=== PATIENT | female | born 1970 | race Caucasian/White ===

== ENCOUNTER 2021-10-21 13:14 | Inpatient (IN) | payer BC, SELFPAY ==
[2021-10-21] VITALS (7 sets, daily range): BP systolic 134–155; BP diastolic 71–88; PULSE 64–92; RESP 16–22; TEMP 36.6–37.2; O2SAT 98–100; BMI 24.9
--- NOTE | ~2021-10-21 | MR_ITS ---
EXAMINATION: MR brain/brain stem wo con DATE: 10/22/2021 12:17 INDICATION: Transient ischemic attack. TECHNIQUE: Magnetic resonance imaging (MRI) of the brain and brainstem was performed without intraven ous contrast. COMPARISON: Head CT 10/21/2021 FINDINGS: There is no intracranial hemorrhage, acute infarction, or abnormal intracranial mass lesion . The ventricles are normal in size. The paranasal sinuses are clear. The orbits are normal. The mast oid air cells are normal. IMPRESSION: 1. Normal brain. Reviewed, dictated and finalized at location B. IMPRESSION: 1. Normal brain.
--- NOTE | ~2021-10-21 | XR_ITS ---
EXAMINATION: XR cervical spine 4-5V DATE: 10/24/2021 10:07 INDICATION: Right arm weakness and numbness. TECHNIQUE: 4 views of cervical spine were obtained. COMPARISON: None. FINDINGS: Bone alignment is normal. Vertebral body heights are normal. There is mildly decreased disc height at C4-C5 and C5-C6. There is multilevel mild facet joint osteoarthritis. There is mild centra l canal stenosis at C5-C6. No prevertebral soft tissue swelling. IMPRESSION: 1. Mild cervical spondylosis. Reviewed, dictated and finalized at location B.
--- NOTE | ~2021-10-21 | US_ITS ---
EXAMINATION: US carotid duplex BI DATE: 10/22/2021 12:19 INDICATION: Carotid bruit. TECHNIQUE: Grayscale, color Doppler, and pulsed Doppler images of the cervical carotid arteries were obtained. The degree of vessel stenosis is placed in one of the following categories: normal, <50%, 5 0-69%, >=70% but less than near-occlusion, near-occlusion, or total occlusion. Note that percent sten osis relative to normal distal artery lumen diameter is indirectly measured from velocity measurement s as described by Brandon, et al. Radiology 2003; 229:340-346. COMPARISON: None. FINDINGS: RIGHT: The right common carotid artery (CCA) peak systolic velocity (PSV) is 87 cm/s. The right internal car otid artery (ICA) PSV is 97 cm/s. The right ICA end-diastolic velocity (EDV) is 43 cm/s. The right IC A/CCA PSV ratio is 1.1. Grayscale and color Doppler images yield an estimate of <50% diameter reducti on from plaque in the ICA. There is antegrade flow in the right vertebral artery. LEFT: The left CCA PSV is 97 cm/s. The left ICA PSV is 100 cm/s. The left ICA EDV is 45 cm/s. The left ICA/ CCA PSV ratio is 1.0. Grayscale and color Doppler images yield an estimate of <50% diameter reduction from plaque in the ICA. There is antegrade flow in the left vertebral artery. IMPRESSION: 1. <50% stenosis in the right internal carotid artery. 2. <50% stenosis in the left internal carotid artery. Reviewed, dictated and finalized at location B.
--- NOTE | ~2021-10-21 | CT_ITS ---
EXAMINATION: CT brain wo con DATE: 10/21/2021 14:11 INDICATION: numbness right arm . TECHNIQUE: Computed tomography (CT) of the head was performed without intravenous contrast. The mA wa s adjusted according to patient size. Iterative reconstruction technique was employed. The dose-lengt h product was 681.00 mGy-cm. COMPARISON: None FINDINGS: No acute intracranial hemorrhage or extra-axial fluid collection. No hydrocephalus, mass, or herniation. No acute ischemic infarct. Unremarkable dural venous sinus attenuation. No acute osseous abnormality. The aerated spaces are clear. IMPRESSION: No acute intracranial process. Reviewed, dictated and finalized at location K.
--- NOTE | 2021-10-21 13:30 | ECG_ITS ---
Measurements Intervals [place] Rate: 84 P: 63 [place]: 120 QRS: 35 QRSD: 81 T: 9 QT: 385 QTc: 456 Interpretive Statements SINUS RHYTHM NONSPECIFIC T-WAVE ABNORMALITY NO PREVIOUS ECG AVAILABLE FOR COMPARISON Electronically Signed On 10-21-2021 16:32:33 CDT by Haim Sommer M.D.
--- NOTE | 2021-10-21 13:34 | ED.NEUROSD ---
HPI - Neuro Symptoms/Deficit General Chief Complaint: Neuro Symptoms/Deficit Stated Complaint: numbness/wkns of right arm Time Seen by Provider: 10/21/21 13:16 History of Present Illness HPI Narrative: Pt was driving to work and flet numbness of right side of face and right hand and her right hand clawed up and she felt her heart race and felt like she was having an out of body experience. Pt says the numbness in her face has nearly resolved and the hand is improving but still feels like she can't control it. Pt denies any issues of RLE. Pt stung by yellow jacket in left ear 3 days ago and had decadron shot 2 days ago for swelling and taking benadryl but all that is improved. Related Data Home Medications Medication Instructions Recorded Confirmed No Home Medications 10/21/21 10/21/21 Allergies Allergy/AdvReac Type Severity Reaction Status Date / Time No Known Allergies Allergy Verified 10/21/21 13:36 Review of Systems Review of Systems: All systems reviewed & are unremarkable except as noted in HPI and below Eyes: Eyes: Reports no additional eye complaints Cardiovascular: Cardiovascular: Reports rapid heart rate Respiratory: Respiratory: Reports dyspnea Musculoskeletal: Musculoskeletal: Reports as per HPI Neurologic: Reports as per HPI Psychiatric: Psychiatric: Reports anxiety PMFSH Past Medical History Medical History (Updated 10/21/21 @ 21:16 by Jordan Sheldon III, DO) No pertinent past medical history Surgical History Surgical History (Updated 10/21/21 @ 19:59 by Liliana Butler APRN) No pertinent past surgical history Social History Social History Spiritual care concerns: No Exam Const: General: healthy appearing Nutritional Appearance: well nourished Orientation/consciousness: patient oriented x3 Limitations: no limitations HENMT: Head: normal to inspection Eyes: Conjunctivae: conjunctivae normal EOM: EOMs intact bilaterally Direct Ophthalmoscopy: no photophobia Neck: Neck: normal visual inspection, no lymphadenopathy and no meningeal signs Chest: Chest palpation & inspection: normal inspection of the chest Resp: Effort & Inspection: normal respiratory effort Auscultation: clear to auscultation bilaterally Cardio: Rate: tachycardic Rhythm: regular rhythm GI: GI Palp: Yes Soft to palpation Auscultation: normal bowel sounds Skin: General skin exam: normal color Rashes: no rashes Wounds: no wounds Neuro: General: patient oriented x3 and CN's II-XI intact bilaterally Cranial nerves: Yes Nystagmus not present Speech: normal speech Other: right wrist flexed somewhat, strength with assembler piano 4/5 on right and 5/5 on left. LE strength 5/5 b/l Extrem: General: no clubbing, cyanosis or edema Psych: Affect: Anxious affect present Attitude: cooperative Course Vital Signs Vital signs: Vital Signs Temperature 98.0 F 10/21/21 13:26 Pulse Rate 92 10/21/21 13:26 Respiratory Rate 22 H 10/21/21 13:26 Blood Pressure 143/84 H 10/21/21 13:26 Pulse Oximetry 98 10/21/21 13:26 Oxygen Delivery Room Air 10/21/21 13:26 Temperature 97.9 F 10/21/21 19:35 Pulse Rate 77 10/21/21 19:35 Respiratory Rate 22 H 10/21/21 19:35 Blood Pressure 149/74 H 10/21/21 19:35 Pulse Oximetry 100 10/21/21 19:35 Oxygen Delivery Room Air 10/21/21 13:26 MDM - Neuro Symptoms/Deficit Lab Data Result diagrams: 10/21/21 14:17 10/21/21 14:17 Labs: Lab Results 10/21/21 10/21/21 10/21/21 Range/Units 14:17 14:17 14:17 WBC 11.4 H (4.5-10.0) K/mm3 RBC 4.01 L (4.2-5.4) M/mm3 Hgb 12.6 (12.0-15.0) g/dL Hct 38.5 (37.0-47.0) % MCV 96.0 (80-100) fl MCH 31.4 (26-34) pg MCHC 32.7 (32-36) g/dl RDW 13.6 (11.5-14.5) % Plt Count 290 (150-375) k/mm3 MPV 11.5 H (7.4-10.4) fl Immature Gran % (Auto) 1.1 H (0-0.5) % Neut % (Auto) 72.4 (45.5-73.1) % Lymph % (Auto) 15.
[2021-10-21 14:36] LABS: Alanine Aminotransferase 24 U/L (6-35); Alkaline Phosphatase 55 U/L (38-126); Anion Gap 8 mmol/L (8-16); Aspartate Amino Transferase 20 U/L (14-36); Bilirubin,Total 0.3 mg/dL (0.2-1.3); Blood Urea Nitrogen 16 mg/dL (7-17); Calcium 9.4 mg/dL (8.4-10.2); Carbon Dioxide 24 mmol/L (22-30); Chloride 109 mmol/L (98-107); Estimated CRCL calculation 56 ml/min; Estimated Glomerular Filt Rate > 60; Glucose 121 mg/dL (65-110); Potassium 3.5 mmol/L (3.4-5.0); Prothrombin Time 13.2 Seconds (11.1-14.7); Sodium 141 mmol/L (137-145)
[2021-10-21 14:37] LABS: Basophils Absolute Auto 0.1 K/mm3 (0.0-0.1); Basophils Percent Auto 0.4 % (0.2-1.2); Eosinophils Absolute Auto 0.1 K/mm3 (0-0.3); Eosinophils Percent Auto 0.6 % (0-4.4); Hematocrit 38.5 % (37.0-47.0); Hemoglobin 12.6 g/dL (12.0-15.0); Immature Granulocyte Absolute 0.12 K/mm3 (0.00-0.031); Immature Granulocyte Percent A 1.1 % (0-0.5); Lymphocytes Absolute Auto 1.81 K/mm3 (0.9-3.2); Lymphocytes Percent Auto 15.9 % (18.3-44.2); Mean Corpuscular HGB Conc 32.7 g/dl (32-36); Mean Corpuscular Hemoglobin 31.4 pg (26-34); Mean Platelet Volume 11.5 fl (7.4-10.4); Monocytes Absolute Auto 1.1 K/mm3 (0.1-0.6); Monocytes Percent Auto 9.6 % (2.6-8.5); Neutrophils Absolute Auto 8.3 K/mm3 (1.3-6.7); Neutrophils Percent Auto 72.4 % (45.5-73.1); Partial Thromboplastin Time 24.8 SECONDS (22.3-36.8); Platelet Count Result 290 k/mm3 (150-375); Red Blood Count 4.01 M/mm3 (4.2-5.4); Red Cell Distribution Width 13.6 % (11.5-14.5); White Blood Count 11.4 K/mm3 (4.5-10.0)
[2021-10-21 14:48] LABS: Troponin I < 0.012 ng/mL (0.000-0.034)
--- NOTE | 2021-10-21 18:01 | ADMGEN ---
This patient, Farhana Garcia, was admitted to Medical Room 343-01. Patient/family oriented to hospital policies and general routines including ID bracelet, bed and alarms, visiting hours, pain management, procedures, bathroom and other care routines, personal items, smoking policy, room service/diet, and visiting hours. Information on how to activate the Rapid Response Team has been discussed. Patient/Family are encouraged to report perceived risks to care and to ask questions if they do not understand what they are told or what they should do.
--- NOTE | 2021-10-21 19:37 | PM.IMHP ---
H&P: HPI History of Present Illness Date/Time: Patient was placed observation status for expected length of stay less than 23 hours for management, will plan to re-evaluate tomorrow for improvement. 10/21/21 19:37 Chief Complaint: Numbness and weakness of right upper extremity Narrative: Ms. Garcia is a 50-year-old female who presented to the emergency room with complaints numbness and weakness to right upper extremity. Patient states that she was feeling quite exhausted today when she woke up. Patient states she did not have to be to work till 11 and as she was getting ready for work she had taken Keflex and her Medrol Dosepak which she was prescribed for a bee sting and she was feeling ?not well?. Patient states that she ate something was feeling slightly improved. Patient states she was driving to work and she noticed some numbness and weakness to her right upper extremity. Patient states while driving that she could no longer hold onto the steering wheel and she felt very shaky. Patient states that the only position her right upper extremity felt comfortable in was laying on her chest in a curled position. Patient denied any deficit to her right lower extremity. Patient states that she did have some numbness to her right face. Patient denied any slurred speech. Patient denies any difficulty speaking. Patient states she was able to see without any difficulty. Patient denied any blurred vision, double vision, or vision loss. Patient states that when she arrived to the emergency room that her symptoms began to improve. Patient states she has no past medical history. Patient states she takes no medications at home. Patient states on of last week she was stung by a bee and had swelling to her left earlobe. Patient states she was taking Benadryl and ibuprofen and she continued to have swelling and went to an urgent care. Patient states he was given a shot of dexamethasone and a prescription for Keflex and a Medrol Dosepak. Patient states she has been taking these medications without any difficulty. Patient denies ever having this occurred to her previously. Patient states that occasionally she will take Excedrin at home for headaches. Patient states that while she was driving to work she did take an Excedrin because she never has aspirin in it. Review of Systems Review of Systems: A 12 point review of systems was completed patient all pertinent positive and negative per HPI the remainder are unremarkable. ON LICENSE OF [facility] Past Medical History Medical History (Updated 10/21/21 @ 20:06 by Liliana Butler APRN) No pertinent past medical history Surgical History Surgical History (Updated 10/21/21 @ 19:59 by Liliana Butler APRN) No pertinent past surgical history Social History Social History Spiritual care concerns: No Meds Home Medications and Allergies Home Medications Medication Instructions Recorded Confirmed Type No Home Medications 10/21/21 10/21/21 History Allergies Allergy/AdvReac Type Severity Reaction Status Date / Time No Known Allergies Allergy Verified 10/21/21 13:36 Vital Signs Vital Signs - 24 hr 10/21/21 13:26 10/21/21 13:47 10/21/21 15:38 Temperature 36.7 C Pulse Rate 92 88 86 Respiratory Rate 22 H 21 H 18 Blood Pressure 143/84 H 134/87 155/88 H Pulse Oximetry 98 100 99 Oxygen Delivery Room Air 10/21/21 17:32 10/21/21 17:56 10/21/21 19:35 Temperature 37.2 C 36.6 C Pulse Rate 76 64 77 Respiratory Rate 17 16 22 H Blood Pressure 147/85 H 134/71 149/74 H Pulse Oximetry 99 100 100 Oxygen Delivery Exam Narrative: Constitutional: Patient is well-nourished in no acute distress. Patient is alert and oriented x3 HEENT: Moist mucous membranes. No scleral icterus. No lymphadenopathy. Neck: No JVD noted Lungs: Lung sounds are clear to auscultation bilaterally. No accessory muscle use. No rhonchi, rales, or wheezes noted. Cardiovascular: Apical p
--- NOTE | 2021-10-21 19:47 | PC.NURSE ---
Call to nurse and she states she feels funny c/o numbness on Rt side of face and back of head, T 97.9, spo2 100%, pulse 83, R. 18 and b/p 149/74. Pt is alert and oriented not neuro deficits noted. Pt appears anxious and nervous. Call placed to PA and updated regarding c/o and no new orders received at this time.
--- NOTE | 2021-10-22 | ECHO_ITS ---
Patient Info Name: Farhana Garcia Age: 50 years : 1970 Gender: Female Ht: 61 in Wt: 128 lbs BSA: 1.59 m2 HR: 72 bpm BP: 119 / 76 mmHg Heart Rhythm: Sinus Rhythm Exam Date: 10/22/2021 1:27 PM Exam Location: [facility] Patient Status: Inpatient Admit Date: 10/21/2021 Staff Ordering Physician: Liliana Butler APRN Software Consultant: Fernando San RDCS, RT Attending Provider: Hunter Vallejo MD Referring Physician: Carrie ANDRE; Exam Type: CA echo doppler color flow Study Info Indications G45.8 - Other transient cerebral ischemic attacks and related syndromes Complete two-dimensional, color flow and Doppler transthoracic echocardiogram is performed. Strain analysis performed. Summary 1. Complete two-dimensional, color flow and Doppler transthoracic echocardiogram is performed. 2. Left ventricular chamber dimension is normal. 3. Left ventricular systolic function is normal, estimated at 65-70%. 4. There is mildly increased left ventricular wall thickness. 5. The left ventricular diastolic function is normal. 6. Global longitudinal strain is normal at -18 %. 7. Left atrial chamber dimension is mildly enlarged. 8. There is mild aortic valve regurgitation. 9. Cannot rule out aortic valve vegetation visualized. 10. There is mild tricuspid valve regurgitation. 11. There is aortic valve thickening and aortic valve vegetaton is not excluded. 12. Recommend JOCELYNE. Left Ventricle Left ventricular chamber dimension is normal. Left ventricular systolic function is normal, estimated at 65-70%. There is mildly increased left ventricular wall thickness. The left ventricular diastolic function is normal. Global longitudinal strain is normal at -18 %. Right Ventricle Right ventricular chamber dimension is normal. Right ventricular systolic function is normal. Left Atria Left atrial chamber dimension is mildly enlarged. Right Atria Right atrial chamber dimension is normal. Atrial Septum Intact interatrial septum visualized by color flow imaging. Aortic Valve The aortic valve is trileaflet. There is no aortic valve stenosis. There is mild aortic valve regurgitation. Cannot rule out aortic valve vegetation visualized. There is aortic valve thickening and aortic valve vegetaton is not excluded. Pulmonic Valve The pulmonic valve is normal. There is no pulmonic valve stenosis. There is trace pulmonic regurgitation. Mitral Valve The mitral valve has normal leaflets. There is no mitral valve stenosis. There is trace mitral valve regurgitation. Tricuspid Valve The tricuspid valve leaflets are normal. There is no significant tricuspid valve stenosis. There is mild tricuspid valve regurgitation. Other Findings Recommend JOCELYNE. Pericardium/Pleural The pericardium appears normal. There is no pericardial effusion. Inferior Vena Cava Dilated inferior vena cava with <50% collapse upon inspiration consistent with elevated right atrial pressure, 10 mmHg. Aorta The aortic root size at the sinus of Valsalva is normal. Left Ventricular Outflow Tract Name Value Normal LVOT 2D LVOT Diameter 1.9 cm LVOT Doppler
[2021-10-22] MEDS: ACETAMINOPHEN 325 MG TABLET 650 MG PO ×2 (00:47→19:53)
[2021-10-22 05:02] VITALS: BP 119/76; PULSE 75; RESP 18; TEMP 37.2; O2SAT 99
[2021-10-22 05:54] LABS: Basophils Absolute Auto 0.1 K/mm3 (0.0-0.1); Basophils Percent Auto 0.6 % (0.2-1.2); Eosinophils Absolute Auto 0.3 K/mm3 (0-0.3); Eosinophils Percent Auto 3.2 % (0-4.4); Hematocrit 35.6 % (37.0-47.0); Hemoglobin 11.8 g/dL (12.0-15.0); Immature Granulocyte Absolute 0.02 K/mm3 (0.00-0.031); Immature Granulocyte Percent A 0.2 % (0-0.5); Lymphocytes Absolute Auto 3.63 K/mm3 (0.9-3.2); Lymphocytes Percent Auto 44.3 % (18.3-44.2); Mean Corpuscular HGB Conc 33.1 g/dl (32-36); Mean Corpuscular Hemoglobin 31.9 pg (26-34); Mean Corpuscular Volume 96.2 fl (80-100); Mean Platelet Volume 11.4 fl (7.4-10.4); Monocytes Absolute Auto 0.7 K/mm3 (0.1-0.6); Monocytes Percent Auto 8.2 % (2.6-8.5); Neutrophils Absolute Auto 3.6 K/mm3 (1.3-6.7); Neutrophils Percent Auto 43.5 % (45.5-73.1); Platelet Count Result 261 k/mm3 (150-375); Red Cell Distribution Width 13.6 % (11.5-14.5); White Blood Count 8.2 K/mm3 (4.5-10.0)
[2021-10-22 06:13] LABS: Anion Gap 6 mmol/L (8-16); Blood Urea Nitrogen 10 mg/dL (7-17); Calcium 8.3 mg/dL (8.4-10.2); Carbon Dioxide 27 mmol/L (22-30); Chloride 105 mmol/L (98-107); Cholesterol 167 mg/dL (0-200); Estimated CRCL calculation 63 ml/min; Estimated Glomerular Filt Rate > 60; Glucose 93 mg/dL (65-110); HDL Direct 46 mg/dL; Magnesium 2.1 mg/dL (1.6-2.3); Potassium 3.8 mmol/L (3.4-5.0); Sodium 138 mmol/L (137-145); Triglycerides 112 mg/dL (<150)
[2021-10-22 06:23] LABS: LDL Cholesterol Direct 85 mg/dL
[2021-10-22] MEDS: ASPIRIN 81 MG ENTERIC TABLET PO (08:28)
[2021-10-22] MEDS: ENOXAPARIN 40 MG/0.4 ML SYRINGE SUB-Q (08:28)
[2021-10-22] MEDS: ONDANSETRON INJ 4 MG/2 ML VIAL IV PUSH (08:55)
[2021-10-22] MEDS: ALPRAZolam (*CRX) 0.5 MG TABLET PO (08:55)
[2021-10-22 09:02] LABS: Glucose Point of Care 109 mg/dl (65-105)
--- NOTE | 2021-10-22 12:12 | WPDNEURCNPN ---
Assessment and Plan Assessment and plan (1) Brain TIA: Code(s): G45.9 - Transient cerebral ischemic attack, unspecified Status: Acute Plan TIA, will benefit from from MRI of the brain echocardiogram and all the blood workup studies further recommendation accordingly in the meantime patient is receiving aspirin 81 mg daily and Lovenox 40 mg subcu daily Consult date: 10/22/21 Time Seen: 11:00 Reason for consult: numbness and weakness of right upper extremity HPI: Farhana Garcia is a 50 year old female admitted to the hospital through the emergency room where she was brought with the complaints of numbness and weakness of the right upper extremity and was initially seen by the provider October 21, 2021 at 1:16 p.m. reportedly she was driving to work and felt numbness of right side of face and right hand and then her right hand clot up and she felt her heart was racing and she was having out of body experience in addition she developed numbness in her face subsequently resolved hand improved still by the time she was seen by the physician she was unable to control the movements she gave no history of involvement of the right lower extremity she has been stung by the yellow jacket in left ear is ago for which she had received Decadron shot 2 days ago and also was taking Benadryl the symptomatology had improved she is not on any home medication by history, not allergic to any medication by history and past medical and surgical history is clear initial vital signs were stable on room air so as the routine lab with normal EKG, her initial CT scan was negative for any acute problems date is no hydrocephalus no signs of stroke and no bleed the MRI of the brain and Doppler carotid studies are pending Review of Systems Review of Systems: All systems reviewed & are unremarkable except as noted in HPI and below PMFSH Past Medical History Medical History (Updated 10/21/21 @ 21:16 by Jordan Sheldon III, DO) No pertinent past medical history Surgical History Surgical History (Updated 10/21/21 @ 19:59 by Liliana Butler APRN) No pertinent past surgical history Social History Social History Spiritual care concerns: No Meds Home Medications and Allergies Home Medications Medication Instructions Recorded Confirmed Type No Home Medications 10/21/21 10/21/21 History Allergies Allergy/AdvReac Type Severity Reaction Status Date / Time No Known Allergies Allergy Verified 10/21/21 13:36 Vital Signs Vital Signs - 24 hr 10/21/21 13:26 10/21/21 13:47 10/21/21 15:38 Temperature 36.7 C Pulse Rate 92 88 86 Respiratory Rate 22 H 21 H 18 Blood Pressure 143/84 H 134/87 155/88 H Pulse Oximetry 98 100 99 Oxygen Delivery Room Air 10/21/21 17:32 10/21/21 17:56 10/21/21 19:35 Temperature 37.2 C 36.6 C Pulse Rate 76 64 77 Respiratory Rate 17 16 22 H Blood Pressure 147/85 H 134/71 149/74 H Pulse Oximetry 99 100 100 Oxygen Delivery 10/21/21 20:00 10/21/21 19:40 10/22/21 05:02 Temperature 36.6 C 37.2 C Pulse Rate 83 75 Respiratory Rate 18 18 Blood Pressure 149/74 H 119/76 Pulse Oximetry 100 99 Oxygen Delivery Room Air Room Air 10/22/21 08:00 Temperature Pulse Rate Respiratory Rate Blood Pressure Pulse Oximetry Oxygen Delivery Room Air Exam Narrative: revealed her to be awake alert cooperative, normocephalic with no cranial bruit, ear nose throat examination normal, neck is supple with no cervical bruit, lungs clear with no rhonchi or crepitations, abdomen is soft with no organomegaly, heart regular with with systolic murmur, lungs clear abdomen is soft neurologically normal mental status normal speech cranial examination normal motor examination revealed normal strength and tone reflexes symmetrical and plantars downgoing Results Labs CBC & Chem 7: 10/22/21 05:25 10/22/21 05:25 Labs: Short CBC 10/21/21 10/22/21 Range/Units 14:
[2021-10-22 14:00] VITALS: BP 117/72; PULSE 72; RESP 20; TEMP 36.8; O2SAT 100
--- NOTE | 2021-10-22 16:07 | PM.IMPN ---
Progress Note: A&P Assessment and Plan (1) TIA (transient ischemic attack): Code(s): G45.9 - Transient cerebral ischemic attack, unspecified Status: Acute Assessment and Plan: CT of head is negative. Patient neurologically is intact has no neural deficits at this time. Will have q.4 hours neuro checks. Will have Neurology to evaluate and treat do appreciate further recommendations. Will have MRI, lipid panel, echo Doppler, and carotid Dopplers performed. Will place patient on aspirin 81 mg daily. Patient would rather not be started on a statin till her lipid panel has returned she has been seen by Neurology. 10/22/2021 interval history: patient states her symptoms have improved facial numbness has resolved as well as right upper extremity weakness, initially patient was quite anxious attributed to dexamethasone and prednisone, patient was given Xanax 0.5 mg patient did improve her symptoms and was able to do MRI which was essentially normal for any acute injury and her cardiac was also normal, patient remains clinically stable will have PT OT evaluate the patient and further recommendation to follow. Subjective Date/time seen: 10/22/21 16:07 Chief Complaint: Numbness and weakness of right upper extremity HPI: Narrative: Ms. Garcia is a 50-year-old female who presented to the emergency room with complaints numbness and weakness to right upper extremity.? Patient states that she was feeling quite exhausted today when she woke up.? Patient states she did not have to be to work till 11 and as she was getting ready for work she had taken Keflex and her Medrol Dosepak which she was prescribed for a bee sting and she was feeling ?not well?.? Patient states that she ate something was feeling slightly improved.? Patient states she was driving to work and she noticed some numbness and weakness to her right upper extremity.? Patient states while driving that she could no longer hold onto the steering wheel and she felt very shaky.? Patient states that the only position her right upper extremity felt comfortable in was laying on her chest in a curled position.? Patient denied any deficit to her right lower extremity.? Patient states that she did have some numbness to her right face.? Patient denied any slurred speech.? Patient denies any difficulty speaking.? Patient states she was able to see without any difficulty.? Patient denied any blurred vision, double vision, or vision loss.? Patient states that when she arrived to the emergency room that her symptoms began to improve.? Patient states she has no past medical history.? Patient states she takes no medications at home.? Patient states on of last week she was stung by a bee and had swelling to her left earlobe.? Patient states she was taking Benadryl and ibuprofen and she continued to have swelling and went to an urgent care.? Patient states he was given a shot of dexamethasone and a prescription for Keflex and a Medrol Dosepak.? Patient states she has been taking these medications without any difficulty.? Patient denies ever having this occurred to her previously.? Patient states that occasionally she will take Excedrin at home for headaches.? Patient states that while she was driving to work she did take an Excedrin because she never has aspirin in it. 10/22/2021 interval history: patient states her symptoms have improved facial numbness has resolved as well as right upper extremity weakness, initially patient was quite anxious attributed to dexamethasone and prednisone, patient was given Xanax 0.5 mg patient did improve her symptoms and was able to do MRI which was essentially normal for any acute injury and her cardiac was also normal, patient remains clinically stable will have PT OT evaluate the patient and further recommendation to follow. Review of Systems Review of Systems: All systems reviewed & are unremarkable except as noted in HPI and below Exam Narrative: Patient is com
[2021-10-22 20:08] VITALS: BP 134/82; PULSE 61; RESP 16; TEMP 36.4; O2SAT 99
[2021-10-23 04:46] VITALS: BP 119/75; PULSE 52; RESP 16; TEMP 36.6; O2SAT 100
[2021-10-23] MEDS: ASPIRIN 81 MG ENTERIC TABLET PO (08:42)
[2021-10-23] MEDS: ENOXAPARIN 40 MG/0.4 ML SYRINGE SUB-Q (08:42)
[2021-10-23] MEDS: ALPRAZolam (*CRX) 0.5 MG TABLET PO (09:58)
[2021-10-23 10:35] LABS: Basophils Absolute Auto 0.1 K/mm3 (0.0-0.1); Eosinophils Absolute Auto 0.2 K/mm3 (0-0.3); Eosinophils Percent Auto 1.9 % (0-4.4); Hematocrit 43.9 % (37.0-47.0); Hemoglobin 13.5 g/dL (12.0-15.0); Immature Granulocyte Absolute 0.03 K/mm3 (0.00-0.031); Immature Granulocyte Percent A 0.4 % (0-0.5); Lymphocytes Absolute Auto 1.66 K/mm3 (0.9-3.2); Mean Corpuscular HGB Conc 30.8 g/dl (32-36); Mean Corpuscular Hemoglobin 32.1 pg (26-34); Mean Corpuscular Volume 104.3 fl (80-100); Mean Platelet Volume 11.3 fl (7.4-10.4); Monocytes Absolute Auto 0.6 K/mm3 (0.1-0.6); Monocytes Percent Auto 7.1 % (2.6-8.5); Neutrophils Absolute Auto 5.4 K/mm3 (1.3-6.7); Neutrophils Percent Auto 68.6 % (45.5-73.1); Platelet Count Result 267 k/mm3 (150-375); Red Blood Count 4.21 M/mm3 (4.2-5.4); Red Cell Distribution Width 13.3 % (11.5-14.5); White Blood Count 7.9 K/mm3 (4.5-10.0)
[2021-10-23] MEDS: CITALOPRAM HYDROBROMIDE 10 MG TABLET PO (10:37)
[2021-10-23 10:49] LABS: Alanine Aminotransferase 17 U/L (6-35); Albumin Level 4.3 g/dL (3.5-5.1); Alkaline Phosphatase 51 U/L (38-126); Anion Gap 9 mmol/L (8-16); Aspartate Amino Transferase 23 U/L (14-36); Bilirubin,Total 0.5 mg/dL (0.2-1.3); Blood Urea Nitrogen 11 mg/dL (7-17); Calcium 8.8 mg/dL (8.4-10.2); Carbon Dioxide 21 mmol/L (22-30); Chloride 107 mmol/L (98-107); Estimated CRCL calculation 63 ml/min; Estimated Glomerular Filt Rate > 60; Glucose 114 mg/dL (65-110); Magnesium 2.5 mg/dL (1.6-2.3); Sodium 137 mmol/L (137-145)
[2021-10-23 10:52] LABS: Creatine Kinase 41 U/L (30-135)
--- NOTE | 2021-10-23 11:17 | PM.CNCAR ---
Assessment and Plan Assessment and plan (1) TIA (transient ischemic attack): Code(s): G45.9 - Transient cerebral ischemic attack, unspecified Status: Acute Assessment and Plan: Possible TIA. Continue aspirin. (2) Diastolic murmur: Code(s): I38 - Endocarditis, valve unspecified Status: Acute Assessment and Plan: She does have an abnormal appearance of her aortic valve. It is thickened and cannot exclude underlying vegetation. Two sets of blood cultures will be ordered. She does not have any clinical symptoms of endocarditis but she did have a 3 month episode of night sweats last fall which she related to perimenopausal status. She does have some aortic insufficiency and a diastolic murmur though. Further delineation and anatomical evaluation of her aortic valve is warranted. Will keep her NPO after midnight for transesophageal echocardiogram tomorrow. (3) Abnormal echocardiogram: Code(s): R93.1 - Abnormal findings on diagnostic imaging of heart and coronary circulation Status: Acute Assessment and Plan: As detailed above History of Present Illness History of Present Illness Consult date/time: 10/23/21 11:17 Requesting physician: Hunter Vallejo MD Consult reason: Other (TIA, abnormal echocardiogram, possible need for T) Reason For Visit: tia Narrative: Date of service 10/23/2021 Reason for consultation: Abnormal echocardiogram, possible JOCELYNE, TIA History: Patient is a 50-year-old female who came to the hospital with complaints of numbness involving her right upper extremity and right side of her face. She also has had some symptoms of weakness involving the right hand as well as a sensation which her right arm needed to draw up toward her face. Patient was in her usual state of health until last week whenever she was stung by a wasp. She has not been feeling well since that time. She had some dizziness as well as some swelling around the wasp sting. Her symptoms worsen to the point that she was taking some Keflex herself and was prescribed steroids. Though symptoms did improve but then on Thursday which was 2 days ago she developed a numbness and weakness on the right upper extremity. She had previously taken Benadryl and ibuprofen for the swelling and eventually went to urgent care where she was given dexamethasone a Medrol Dosepak and prescription for cephalexin. This symptoms of numbness and weakness have since improved but did not completely go away. Last night after receiving some alprazolam her symptoms essentially resolved. There back a little bit today especially after hearing the results of the echocardiogram which is detailed below. The patient denies any chest pain, shortness of breath, syncope, presyncope, paroxysmal nocturnal dyspnea, orthopnea, edema or significant palpitations. She will have an occasional skipped beat at time. She states that she has not had any recent fevers chills or night sweats. She did state though the last year for about 3 months she had copious amounts of night sweats in the late summer and early fall. The symptoms spontaneously resolved. Review of Systems Review of Systems: Awake alert oriented appears to be in no acute distress All systems reviewed & are unremarkable except as noted in HPI and below Constitutional: Constitutional: Denies body ache(s) and Denies chills Eyes: Eyes: Denies blurry vision ENT: Denies Normal hearing present Cardiovascular: Cardiovascular: Denies diaphoresis and Denies pedal edema Comments: Occasional palpitation Respiratory: Respiratory: Denies hemoptysis Gastrointestinal: Gastrointestinal: Denies abdominal pain Genitourinary: Genitourinary: Denies hematuria Musculoskeletal: Musculoskeletal: Denies back pain and Denies myalgias Integumentary/Breasts: Skin/Breast: Denies breast pain Neurologic: Denies Abnormal speech present and Reports numbness Psychiatric: Psychiatric: Denies conf
--- NOTE | 2021-10-23 12:16 | WPDNEUROPN ---
Subjective Date/time seen: 10/23/21 12:16 Interval history: TIA with follow-up carotid Doppler study is negative, MRI of the brain is normal routine lab is only suggestive of prolonged MCV Review of Systems Review of Systems: All systems reviewed & are unremarkable except as noted in HPI and below Exam Narrative: remains nonfocal neurological and medications will be continued as such Objective Data Vital Signs Vital Signs: Vital Signs - 24 hr 10/22/21 14:00 10/22/21 20:08 10/22/21 20:00 Temperature 36.8 C 36.4 C Pulse Rate 72 61 Respiratory Rate 20 16 Blood Pressure 117/72 134/82 Pulse Oximetry 100 99 Oxygen Delivery Room Air 10/23/21 04:46 10/23/21 08:00 Temperature 36.6 C Pulse Rate 52 L Respiratory Rate 16 Blood Pressure 119/75 Pulse Oximetry 100 Oxygen Delivery Room Air Intake/Output Intake/Output: Intake & Output 10/20/21 10/21/21 10/22/21 10/23/21 23:59 23:59 23:59 23:59 Intake Total 1750 590 Output Total 779 947 1443 Balance -700 850 -410 Meds/Results Medications: Active Medications Generic Name Dose Route Start Last Admin Trade Name Freq PRN Reason Stop Dose Admin Acetaminophen 650 mg 10/22/21 00:20 10/22/21 19:53 Acetaminophen 325 Mg Tablet PO 650 mg Q6H PRN Administration Mild Pain (1-3) or Fever Alprazolam 0.5 mg 10/22/21 08:44 10/23/21 09:58 Alprazolam (*Crx) 0.5 Mg Tablet PO 0.5 mg TID PRN Administration Anxiety Aspirin 81 mg 10/22/21 09:00 10/23/21 08:42 Aspirin 81 Mg Enteric Tablet PO 81 mg QAM KEMI Administration Citalopram Hydrobromide 10 mg 10/23/21 09:55 10/23/21 10:37 Citalopram Hydrobromide 10 Mg Tablet PO 10 mg QAM KEMI Administration Enoxaparin Sodium 40 mg 10/22/21 09:00 10/23/21 08:42 Enoxaparin 40 Mg/0.4 Ml Syringe SUB-Q 40 mg DAILY KEMI Administration Perflutren Lipid Microsphere 0 ml 10/21/21 17:20 Perflutren Lipid Microspheres 1.5 Ml Vial Diluted To 10 Ml Total Volume IV PUSH ONCE PRN adequate visualization Protocol Rosuvastatin Calcium 5 mg 10/24/21 09:00 Rosuvastatin 5 Mg Tablet PO DAILY [facility] Radiology Results: ITS Impressions Head CT 10/21/21 14:11 IMPRESSION: No acute intracranial process. Brain MRI 10/22/21 12:24 IMPRESSION: 1. Normal brain. Carotid Doppler Study 10/22/21 12:31 IMPRESSION: 1. <50% stenosis in the right internal carotid artery. 2. <50% stenosis in the left internal carotid artery. Labs Labs: Laboratory Results - last 24 hr 10/23/21 10/23/21 10/23/21 10:19 10:19 10:19 WBC 7.9 RBC 4.21 Hgb 13.5 Hct 43.9 MCV 104.3 H D MCH 32.1 MCHC 30.8 L RDW 13.3 Plt Count 267 MPV 11.3 H Immature Gran % (Auto) 0.4 Neut % (Auto) 68.6 Lymph % (Auto) 21.0 [place] % (Auto) 7.1 Eos % (Auto) 1.9 Baso % (Auto) 1.0 Lymph # (Auto) 1.66 [place] # (Auto) 0.6 Eos # (Auto) 0.2 Baso # (Auto) 0.1 Abs Immat Gran (auto) 0.03 Absolute Neuts (auto) 5.4 Absolute Nucleated RBC 0.0 Nucleated RBC % 0.0 Sodium 137 Potassium 4.0 Chloride 107 Carbon Dioxide 21 L Anion Gap 9 BUN 11 Creatinine 0.70 Estim Creat Clear Calc 63 Estimated GFR > 60 Glucose 114 H Calcium 8.8 Magnesium 2.5 H Total Bilirubin 0.5 AST 23 ALT 17 Alkaline Phosphatase 51 Total Creatine Kinase 41 Total Protein 8.0 Albumin 4.3 Quality VTE Prophylaxis VTE prophylaxis: mechanical ordered and pharmacologic ordered Amg Follow-up Billing Observation Follow-up [id number] Estab Pt Lvl 2
[2021-10-23 14:00] VITALS: BP 125/73; PULSE 66; RESP 16; TEMP 36.6; O2SAT 96
--- NOTE | 2021-10-23 14:01 | PM.IMPN ---
Progress Note: A&P Assessment and Plan (1) TIA (transient ischemic attack): Code(s): G45.9 - Transient cerebral ischemic attack, unspecified Status: Acute Assessment and Plan: CT of head is negative. Patient neurologically is intact has no neural deficits at this time. Will have q.4 hours neuro checks. Will have Neurology to evaluate and treat do appreciate further recommendations. Will have MRI, lipid panel, echo Doppler, and carotid Dopplers performed. Will place patient on aspirin 81 mg daily. Patient would rather not be started on a statin till her lipid panel has returned she has been seen by Neurology. 10/22/2021 interval history: patient states her symptoms have improved facial numbness has resolved as well as right upper extremity weakness, initially patient was quite anxious attributed to dexamethasone and prednisone, patient was given Xanax 0.5 mg patient did improve her symptoms and was able to do MRI which was essentially normal for any acute injury and her cardiac was also normal, patient remains clinically stable will have PT OT evaluate the patient and further recommendation to follow. 10/23/2021 interval history: on 10/22 patient stated her symptoms have improved facial numbness has resolved as well as right upper extremity weakness, initially patient was quite anxious attributed to dexamethasone and prednisone, patient was given Xanax 0.5 mg patient did improve her symptoms and was able to do MRI which was essentially normal for any acute injury and her cardiac echo showed normal LV function however patient has mild aortic regurgitation and slice cutting machine operator helper vegetation recommended JOCELYNE to further evaluate also recommended blood culture, today again patient is quite anxious and feels numbness on right side of her face and weakness on right upper extremity, 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 patient remains clinically stable will have PT OT evaluate the patient and further recommendation to follow. Subjective Date/time seen: 10/23/21 14:01 10/23/2021 interval history: on 10/22 patient stated her symptoms have improved facial numbness has resolved as well as right upper extremity weakness, initially patient was quite anxious attributed to dexamethasone and prednisone, patient was given Xanax 0.5 mg patient did improve her symptoms and was able to do MRI which was essentially normal for any acute injury and her cardiac echo showed normal LV function however patient has mild aortic regurgitation and slice cutting machine operator helper vegetation recommended JOCELYNE to further evaluate also recommended blood culture, today again patient is quite anxious and feels numbness on right side of her face and weakness on right upper extremity, 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 patient remains clinically stable will have PT OT evaluate the patient and further recommendation to follow. Review of Systems Review of Systems: All systems reviewed & are unremarkable except as noted in HPI and below Exam Narrative: Patient is comfortable, NAD anxious HEENT: eyes are clear and none icteric LUNGS: normal respiratory effort ABD: not distended Lower extremities: no edema SKIN: nonjaundiced Neuro: grossly intact. Objective Data Vital Signs Vital Signs: Vital Signs - 24 hr 10/22/21 20:08 10/22/21 20:00 10/23/21 04:46 Temperature 97.6 F 97.8 F Pulse Rate 61 52 L Respiratory Rate 16 16 Blood Pressure 134/82 119/75 Pulse Oximetry 99 100 Oxygen Delivery Room Air 10/23/21 08:00 Temperature Pulse Rate Respiratory Rate Blood Pressure Pulse Oximetry Oxygen Delivery Room Air Intake/Output Intake/Output: Intake & Output 10/20/21 10/21/21 10/22/21 10/23/21 23:59 23:59 23:59 23:59 Intake Total 1750 590 Output Total 552 390 5176 Balance
[2021-10-23 20:36] VITALS: BP 127/75; PULSE 63; RESP 16; TEMP 36.6; O2SAT 97
[2021-10-24] VITALS (15 sets, daily range): BP systolic 100–134; BP diastolic 56–80; PULSE 56–79; RESP 12–22; TEMP 36.2–36.9; O2SAT 96–100
[2021-10-24 06:06] LABS: Pregnancy On Board Control Positive; Urine Pregnancy Test Negative
--- NOTE | 2021-10-24 08:35 | WPDMODSED ---
Moderate Sedation Note-Pt Data Patient Data Diagnosis: AV abnormality and TIA Present Complaint: TIA abnormal echo Procedure to be performed/Plan: Multiplanar transesophageal echocardiography with color flow and pulse Doppler Agitated saline study Moderate sedation Allergies Allergy/AdvReac Type Severity Reaction Status Date / Time No Known Allergies Allergy Verified 10/24/21 08:04 Home Medications Medication Instructions Recorded Confirmed Type No Home Medications 10/21/21 10/21/21 History Current Medications: Active Medications Acetaminophen (Acetaminophen 325 Mg Tablet) 650 mg PO Q6H PRN PRN Reason: Mild Pain (1-3) or Fever Last Admin: 10/22/21 19:53 Dose: 650 mg Alprazolam (Alprazolam (*Crx) 0.5 Mg Tablet) 0.5 mg PO TID PRN PRN Reason: Anxiety Last Admin: 10/23/21 09:58 Dose: 0.5 mg Aspirin (Aspirin 81 Mg Enteric Tablet) 81 mg PO QAM [facility] Last Admin: 10/23/21 08:42 Dose: 81 mg Citalopram Hydrobromide (Citalopram Hydrobromide 10 Mg Tablet) 10 mg PO QAM [facility] Last Admin: 10/23/21 10:37 Dose: 10 mg Enoxaparin Sodium (Enoxaparin 40 Mg/0.4 Ml Syringe) 40 mg SUB-Q DAILY [facility] Last Admin: 10/23/21 08:42 Dose: 40 mg Perflutren Lipid Microsphere (Perflutren Lipid Microspheres 1.5 Ml Vial Diluted To 10 Ml Total Volume) 0 ml IV PUSH ONCE PRN; Protocol PRN Reason: adequate visualization Rosuvastatin Calcium (Rosuvastatin 5 Mg Tablet) 5 mg PO DAILY [facility] Sedation/Anesthesia: No previous sedation/anesthesia problems (including family history). [facility] Past Medical History Medical History No pertinent past medical history Prolactinoma Surgical History Surgical History No pertinent past surgical history Family History Family History Father Osteoarthritis Social History Social History Social History: No significant smoking alcohol or illicit drug use Smoking status: Never smoker Spiritual care concerns: No Mod Sed Physical Exam Physical Exam Pre Procedural Exam: Normal: Appearance, Eyes, Ears, Nose, Neck, Throat, Airway, Lungs, Heart Size, Heart Rate, Heart Rhythm, Neuro Exam, Extremities and Skin Hours since solid foods: 12 Hours since liquid intake: 112 Mallampati Classification: class II Internal Medicine - PN: Obj Da Vital Signs Vital Signs: Vital Signs - 24 hr 10/23/21 14:00 10/23/21 20:36 10/23/21 20:00 Temperature 36.6 C 36.6 C Pulse Rate 66 63 Respiratory Rate 16 16 Blood Pressure 125/73 127/75 Pulse Oximetry 96 97 Oxygen Delivery Room Air 10/24/21 05:53 10/24/21 08:17 Temperature 36.2 C L 36.8 C Pulse Rate 65 79 Respiratory Rate 16 17 Blood Pressure 124/69 134/74 Pulse Oximetry 98 97 Oxygen Delivery Room Air Intake/Output Intake/Output: Intake & Output 10/21/21 10/22/21 10/23/21 10/24/21 23:59 23:59 23:59 23:59 Intake Total 1750 4680 Output Total 082 611 5444 900 Balance -700 850 -1820 -900 Meds/Results Medications: Active Medications Generic Name Dose Route Start Last Admin Trade Name Freq PRN Reason Stop Dose Admin Acetaminophen 650 mg 10/22/21 00:20 10/22/21 19:53 Acetaminophen 325 Mg Tablet PO 650 mg Q6H PRN Administration Mild Pain (1-3) or Fever Alprazolam 0.5 mg 10/22/21 08:44 10/23/21 09:58 Alprazolam (*Crx) 0.5 Mg Tablet PO 0.5 mg TID PRN Administration Anxiety Aspirin 81 mg 10/22/21 09:00 10/23/21 08:42 Aspirin 81 Mg Enteric Tablet PO 81 mg QAM KEMI Administration Citalopram Hydrobromide 10 mg 10/23/21 09:55 10/23/21 10:37 Citalopram Hydrobromide 10 Mg Tablet PO 10 mg QAM KEMI Administration Enoxaparin Sodium 40 mg 10/22/21 09:00 10/23/21 08:42 Enoxaparin 40 Mg/0.4 Ml Syringe SUB-Q 40 mg DAILY KEMI Administration
--- NOTE | 2021-10-24 08:37 | PC.NURSE ---
Patient went down for JOCELYNE around 0800.
--- NOTE | 2021-10-24 09:01 | P.PCNTEE_ITS ---
JOCELYNE TransEsophageal Echocardiogram Date of procedure: 10/24/21 Procedure Type: 1. Multiplanar transesophageal echocardiography with color-flow pulse-wave Doppler 2. Agitated saline study 3. Moderate sedation Diagnosis: TIA/abnormal transthoracic echocardiogram Indications: TIA, abnormal transthoracic echocardiogram Image Quality: Good Findings: Procedure: After discussing the risks, benefits alternatives of the procedure patient agreeable via verbal and written informed consent. Risks discussed included esophageal rupture perforation, adverse reaction to anesthesia, bleeding, pain, infection. After establishing continuous telemetry monitoring, pulse oxygenation and serial blood pressure assessments time-out was taken in the procedure was initiated. Procedure start time 8:42 a.m. Procedure stop time 8:58 a.m. Medications were administered and patient was monitored by Mery Michael Medications given: Hurricaine spray to the hypopharynx x2 as well as 10 cc of viscous lidocaine gargle and swallow as well as 4 mg of Versed and 50 mcg of fentanyl given in divided dosages. Complications: None Blood loss: None Findings: Normal left ventricular size and function ejection fraction 60 65%. Normal right ventricular size and function. Normal right atrial size. Normal left atrial size. Atrial septum is intact without agitated saline or color flow evidence of shunting. Left atrial appendage is also normal with out mass or thrombus with pulse-wave velocities of greater than 70 centimeters/second. The mitral valve is normal with at most mild mitral regurgitation. Tricuspid valve is normal with mild tricuspid regurgitation. Pulmonic valve is normal without s ignificant pulmonic insufficiency. The aortic valve is trileaflet. It is mildly thickened and sclerotic but no mass or vegetation. There is [id number] aortic insufficiency. Aortic root is normal in size. No pericardial effusion. Conclusions: 1. Normal left ventricular size and function ejection fraction 60-65% 2. No evidence of endocarditis. 3. Thickened aortic valve cusps but without obvious mass, thrombus or vegetation. There is [id number] aortic insufficiency 4. Mild mitral and tricuspid regurgitation 5. Intact atrial septum with negative agitated saline study 6. Moderate sedation
[2021-10-24 10:28] LABS: Glucose Point of Care 136 mg/dl (65-105)
[2021-10-24] MEDS: ASPIRIN 81 MG ENTERIC TABLET PO (10:56)
[2021-10-24] MEDS: CITALOPRAM HYDROBROMIDE 10 MG TABLET PO (10:56)
[2021-10-24 13:24] LABS: Glucose Point of Care 124 mg/dl (65-105)
[2021-10-24] MEDS: SODIUM CHLORIDE 0.9% IV 1,000 ML 150 ML IV CONT (14:00)
[2021-10-24] MEDS: ALPRAZolam (*CRX) 0.5 MG TABLET PO (15:07)
[2021-10-24] MEDS: ONDANSETRON INJ 4 MG/2 ML VIAL IV PUSH (15:07)
--- NOTE | 2021-10-24 15:43 | PM.IMPN ---
Progress Note: A&P Assessment and Plan (1) TIA (transient ischemic attack): Code(s): G45.9 - Transient cerebral ischemic attack, unspecified Status: Acute Assessment and Plan: CT of head is negative. Patient neurologically is intact has no neural deficits at this time. Will have q.4 hours neuro checks. Will have Neurology to evaluate and treat do appreciate further recommendations. Will have MRI, lipid panel, echo Doppler, and carotid Dopplers performed. Will place patient on aspirin 81 mg daily. Patient would rather not be started on a statin till her lipid panel has returned she has been seen by Neurology. 10/22/2021 interval history: patient states her symptoms have improved facial numbness has resolved as well as right upper extremity weakness, initially patient was quite anxious attributed to dexamethasone and prednisone, patient was given Xanax 0.5 mg patient did improve her symptoms and was able to do MRI which was essentially normal for any acute injury and her cardiac was also normal, patient remains clinically stable will have PT OT evaluate the patient and further recommendation to follow. 10/23/2021 interval history: on 10/22 patient stated her symptoms have improved facial numbness has resolved as well as right upper extremity weakness, initially patient was quite anxious attributed to dexamethasone and prednisone, patient was given Xanax 0.5 mg patient did improve her symptoms and was able to do MRI which was essentially normal for any acute injury and her cardiac echo showed normal LV function however patient has mild aortic regurgitation and embalmer/funeral director vegetation recommended JOCELYNE to further evaluate also recommended blood culture, today again patient is quite anxious and feels numbness on right side of her face and weakness on right upper extremity, 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 patient remains clinically stable will have PT OT evaluate the patient and further recommendation to follow. 10/24/2021 interval history: on 10/22 patient stated her symptoms have improved facial numbness has resolved as well as right upper extremity weakness, initially patient was quite anxious attributed to dexamethasone and prednisone, patient was given Xanax 0.5 mg patient did improve her symptoms and was able to do MRI which was essentially normal for any acute injury and her cardiac echo showed normal LV function however patient has mild aortic regurgitation and embalmer/funeral director vegetation recommended JOCELYNE to further evaluate also recommended blood culture, today patient had a JOCELYNE did not show any vegetation, today again patient is quite anxious and feels numbness on right side of her face and weakness on right upper extremity, to further evaluate patient had x-ray of C-spine which showed mild arthritis, while in the x-ray department patient had a syncopal episode, states felt warm prior to the episode, will gently hydrate the patient monitor overnight have PT OT evaluate the patient, 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 patient remains clinically stable will have PT OT evaluate the patient and further recommendation to follow. Subjective Date/time seen: 10/24/21 15:43 10/24/2021 interval history: on 10/22 patient stated her symptoms have improved facial numbness has resolved as well as right upper extremity weakness, initially patient was quite anxious attributed to dexamethasone and prednisone, patient was given Xanax 0.5 mg patient did improve her symptoms and was able to do MRI which was essentially normal for any acute injury and her cardiac echo showed normal LV function however patient has mild aortic regurgitation and embalmer/funeral director vegetation recommended JOCELYNE to further evaluate also recommended blood culture, today patient had a JOCELYNE did not show an
[2021-10-25 06:00] VITALS: BP 101/63; PULSE 55; RESP 16; TEMP 36.1; O2SAT 98
[2021-10-25] MEDS: CITALOPRAM HYDROBROMIDE 10 MG TABLET PO (07:48)
[2021-10-25] MEDS: ENOXAPARIN 40 MG/0.4 ML SYRINGE SUB-Q (07:48)
[2021-10-25] MEDS: ASPIRIN 81 MG ENTERIC TABLET PO (07:48)
[2021-10-25] MEDS: ALPRAZolam (*CRX) 0.5 MG TABLET PO (07:53)
[2021-10-25 11:09] LABS: Hemoglobin 13.3 g/dL (12.0-15.0); Mean Corpuscular HGB Conc 33.3 g/dl (32-36); Mean Corpuscular Hemoglobin 31.5 pg (26-34); Mean Corpuscular Volume 94.8 fl (80-100); Mean Platelet Volume 10.7 fl (7.4-10.4); Platelet Count Result 310 k/mm3 (150-375); Red Blood Count 4.22 M/mm3 (4.2-5.4); Red Cell Distribution Width 13.1 % (11.5-14.5); White Blood Count 9.1 K/mm3 (4.5-10.0)
[2021-10-25 11:20] LABS: Alanine Aminotransferase 16 U/L (6-35); Albumin Level 4.6 g/dL (3.5-5.1); Alkaline Phosphatase 57 U/L (38-126); Anion Gap 6 mmol/L (8-16); Aspartate Amino Transferase 23 U/L (14-36); Bilirubin,Total 0.6 mg/dL (0.2-1.3); Blood Urea Nitrogen 11 mg/dL (7-17); Calcium 8.7 mg/dL (8.4-10.2); Carbon Dioxide 28 mmol/L (22-30); Chloride 105 mmol/L (98-107); Estimated CRCL calculation 56 ml/min; Estimated Glomerular Filt Rate > 60; Glucose 107 mg/dL (65-110); Magnesium 2.2 mg/dL (1.6-2.3); Potassium 4.2 mmol/L (3.4-5.0); Sodium 139 mmol/L (137-145)
[2021-10-25 11:52] LABS: Thyroid Stimulating Hormone Reflex 0.329 uIU/mL (0.465-4.68)
[2021-10-25 12:38] LABS: Free T4 Free Thyroxine Reflex 1.23 ng/dL (0.78-2.19)
--- NOTE | 2021-10-25 13:10 | PM.DS ---
DS: Admitting Diagnosis Discharge Date 10/25/2021 Admitting Diagnosis Numbness and weakness of right upper extremity DS: Discharge Diagnosis Discharge Diagnosis (1) TIA (transient ischemic attack): Code(s): G45.9 - Transient cerebral ischemic attack, unspecified Status: Acute Assessment and Plan: CT of head is negative. Patient neurologically is intact has no neural deficits at this time. Will have q.4 hours neuro checks. Will have Neurology to evaluate and treat do appreciate further recommendations. Will have MRI, lipid panel, echo Doppler, and carotid Dopplers performed. Will place patient on aspirin 81 mg daily. Patient would rather not be started on a statin till her lipid panel has returned she has been seen by Neurology. 10/22/2021 interval history: patient states her symptoms have improved facial numbness has resolved as well as right upper extremity weakness, initially patient was quite anxious attributed to dexamethasone and prednisone, patient was given Xanax 0.5 mg patient did improve her symptoms and was able to do MRI which was essentially normal for any acute injury and her cardiac was also normal, patient remains clinically stable will have PT OT evaluate the patient and further recommendation to follow. 10/23/2021 interval history: on 10/22 patient stated her symptoms have improved facial numbness has resolved as well as right upper extremity weakness, initially patient was quite anxious attributed to dexamethasone and prednisone, patient was given Xanax 0.5 mg patient did improve her symptoms and was able to do MRI which was essentially normal for any acute injury and her cardiac echo showed normal LV function however patient has mild aortic regurgitation and hydrology professor vegetation recommended JOCELYNE to further evaluate also recommended blood culture, today again patient is quite anxious and feels numbness on right side of her face and weakness on right upper extremity, 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 patient remains clinically stable will have PT OT evaluate the patient and further recommendation to follow. 10/24/2021 interval history: on 10/22 patient stated her symptoms have improved facial numbness has resolved as well as right upper extremity weakness, initially patient was quite anxious attributed to dexamethasone and prednisone, patient was given Xanax 0.5 mg patient did improve her symptoms and was able to do MRI which was essentially normal for any acute injury and her cardiac echo showed normal LV function however patient has mild aortic regurgitation and hydrology professor vegetation recommended JOCELYNE to further evaluate also recommended blood culture, today patient had a JOCELYNE did not show any vegetation, today again patient is quite anxious and feels numbness on right side of her face and weakness on right upper extremity, to further evaluate patient had x-ray of C-spine which showed mild arthritis, while in the x-ray department patient had a syncopal episode, states felt warm prior to the episode, will gently hydrate the patient monitor overnight have PT OT evaluate the patient, 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 patient remains clinically stable will have PT OT evaluate the patient and further recommendation to follow. DS: Summary Hospital Course Reason for hospitalization: Chief Complaint: Numbness and weakness of right upper extremity Narrative: Ms. Garcia is a 50-year-old female who presented to the emergency room with complaints numbness and weakness to right upper extremity.? Patient states that she was feeling quite exhausted today when she woke up.? Patient states she did not have to be to work till 11 and as she was getting ready for work she had taken Keflex and her Medrol Dosepak which she was prescribed for a be
[2021-10-25 20:11] LABS: Total Triiodothyronine (T3) 1.16 NG/ML (0.97-1.69)
== END 2021-10-25 14:05 | disposition home or self-care (01) | DRG 69 ==
LOC: ANHED 13:48 → ANH3MED 16:38
PROVIDERS: Internal Medicine Cardiovascular Disease; Nurse Practitioner Adult Health; Admitting Provider Family Medicine; Emergency Provider Emergency Medicine; Visit Provider Family Medicine
PROC: B24BZZ4 Ultrasonography of Heart with Aorta, Transesophageal (ICD-10-PCS; CPT 93312; principal; 2021-10-24 08:30)
DX: G45.9 Transient cerebral ischemic attack, unspecified (principal); I38 Endocarditis, valve unspecified; I35.1 Nonrheumatic aortic (valve) insufficiency; F41.9 Anxiety disorder, unspecified; R55 Syncope and collapse
CPT/HCPCS: 36415; 70450; 70551; 72050; 80048; 80053; 80061; 81025; 82550; 82948; 83735; 84439; 84443; 84480; 84484; 85025; 85027; 85610; 85730; 87040; 93005; 93306; 93312; 93320; 93325; 93880; 96372; 96374; 99285; A9270; G0378; J1650; J2250; J2405; J3010; J7030; J7040